=== PATIENT | male | born 1975 | race African-American/Black ===

== ENCOUNTER 2022-03-29 21:51 | Emergency (ER) | payer OTHER ==
[~2022-03-29] VITALS: Ht 172.7 cm; Wt 84.8 kg
[2022-03-29 23:25] VITALS: BP 143/93; TEMP 97.5
== END 2022-03-29 23:25 | disposition home or self-care (01) ==
LOC: ED 21:51
DX: R73.9 Hyperglycemia, unspecified (principal); G56.00 Carpal tunnel syndrome, unspecified upper limb
CPT/HCPCS: 82948; 99283

== ENCOUNTER 2022-05-03 16:54 | Emergency (ER) | payer OTHER ==
[~2022-05-03] VITALS: Ht 172.7 cm; Wt 81.6 kg
[2022-05-03 19:40] VITALS: BP 146/82; TEMP 98
== END 2022-05-03 19:40 | disposition home or self-care (01) ==
LOC: ED 16:54
DX: S05.01XA Injury of conjunctiva and corneal abrasion without foreign body, right eye, initial encounter (principal); W20.8XXA Other cause of strike by thrown, projected or falling object, initial encounter; Y92.89 Other specified places as the place of occurrence of the external cause
CPT/HCPCS: 90471; 90715; 96373; 99283

== ENCOUNTER 2023-02-23 20:12 | Emergency (ER) | payer OTHER ==
[~2023-02-23] VITALS: Ht 172.7 cm; Wt 86.2 kg
[2023-02-23 20:48] LABS: PLATELET COUNT 203 K/uL (142-355)
[2023-02-23 20:58] LABS: POTASSIUM 3.4 mmol/L (3.6-5.2)
[2023-02-24 01:45] VITALS: BP 142/88; TEMP 98.2
[2023-02-24] MEDS ORDERED: METFORMIN HYDR850 MG PO (03:17)
[2023-02-24] MEDS ORDERED: LISI10TA11 PO (03:17)
== END 2023-02-24 01:45 | disposition home or self-care (01) ==
LOC: ED 20:12
PROVIDERS: Family Medicine
DX: F10.129 Alcohol abuse with intoxication, unspecified (principal); F10.10 Alcohol abuse, uncomplicated
CPT/HCPCS: 80053; 80320; 84484; 85027; 87635; 96365; 96366; 99284; J3411; J3475; J3490; U0003